=== PATIENT | female | born 2000 | race Caucasian/White ===

== ENCOUNTER 2021-10-29 00:04 | Emergency (ER) | payer OTHER ==
[2021-10-29] MEDS ORDERED: NORFLEX 100 MG100 MG PO (01:05)
[2021-10-29] MEDS ORDERED: IBUPROFEN600 MG PO (01:05)
== END 2021-10-29 01:09 | disposition home or self-care (01) ==
LOC: ER1 00:04
DX: M54.6 Pain in thoracic spine (principal); G89.29 Other chronic pain
CPT/HCPCS: 72072; 99283

== ENCOUNTER 2022-01-18 20:40 | Emergency (ER) | payer OTHER ==
[~2022-01-18 20:40] MED LIST: IBUPROFEN600 MG PO; NORFLEX 100 MG100 MG PO
[2022-01-18] MEDS ORDERED: IBUPROFEN800 MG PO (21:19)
== END 2022-01-18 22:00 | disposition home or self-care (01) ==
LOC: ER1 20:40
DX: S96.911A Strain of unspecified muscle and tendon at ankle and foot level, right foot, initial encounter (principal); S93.601A Unspecified sprain of right foot, initial encounter; X58.XXXA Exposure to other specified factors, initial encounter; Y92.009 Unspecified place in unspecified non-institutional (private) residence as the place of occurrence of the external cause
CPT/HCPCS: 73600; 73620; 99283